=== PATIENT | female | born 1975 | race Caucasian/White ===

== ENCOUNTER → 2019-01-18 | Day surgery (SDC) | payer OTHER ==
[~2019-01-18] MED LIST: AMLO5TAB4 PO; BUPR300T3 PO; CARB200T PO; CARB400T PO; CLON1TAB PO; DULO60CA6 PO; IV RINGERS,LACTATED 1000ML 1,000 ML IV ONE; IV RINGERS,LACTATED 1000ML 1,000 ML IV SCH; LIDOCAINE 2% PF 5 ML VIAL. ONE; LURA60TA PO; PROPOFOL 40 ML IV ONE; ZOLP10TA PO
[2019-01-18 09:45] VITALS: BP 103/77
--- NOTE | 2019-01-22 10:07 | PATHOLOGY ---
[facility] Accession Number: [id number] . 01 Material submitted: . colon - SIGMOID POLYP. Modifiers: sigmoid . 01 Clinical history: . Blood in stool. . 02 Diagnosis: Colon biopsy, sigmoid polyp: - Hyperplastic polyp. . ([facility]; 01/21/2019) [facility] 01/21/2019 1559 Local . 02 Comment: There are no adenomatous changes or evidence of malignancy. . ([facility]; 01/21/2019) . 02 Electronically signed: . Sameer Ayala MD, Pathologist NPI- [id number] . 01 Gross description: . Received in formalin labeled "Stone, Yomaira, sigmoid polyp" is a 0.4 x 0.4 x 0.2 cm fragment of meyer-brown mucosa. The specimen is submitted in A1. ([facility] [place]; 01/19/2019) [facility] 01/19/2019 1005 Local . 02 Pathologist provided ICD-10: K63.5 . 02 CPT . 911773 Specimen Comment: A courtesy copy of this report has been sent to [phone] Specimen Comment: [phone] Specimen Comment: Report sent to and Performed at: 01 [facility] [address], [place], [place] [id number] MD Diallo Rey MD Phone: [phone] Performed at: 02 [facility] [address] [place], [place] [id number] MD Sameer Ayala MD Phone: [phone]
== END ==
LOC: ENDOS 08:09
PROVIDERS: ATTEND Internal Medicine Gastroenterology
DX: R19.7 Diarrhea, unspecified (principal); K63.5 Polyp of colon; K64.0 First degree hemorrhoids; F32.9 Major depressive disorder, single episode, unspecified; F41.9 Anxiety disorder, unspecified; Z72.89 Other problems related to lifestyle; Z88.0 Allergy status to penicillin; Z90.710 Acquired absence of both cervix and uterus; Z90.49 Acquired absence of other specified parts of digestive tract
CPT/HCPCS: 45380; 88305; J2001; J2704